=== PATIENT | male | born 1990 | race Caucasian/White ===

== ENCOUNTER 2020-08-18 08:24 | Emergency (ER) | payer MEDICAID, SELFPAY ==
[~2020-08-18] VITALS: Ht 165.1 cm; Wt 86.2 kg
--- NOTE | 2020-08-18 08:24 | NUR ---
ASSISTED OUT OF CAR TO WHEELCHAIR, PLACED IN ROOM #5, TRIAGED. REPORT GIVEN TO KAPIL
[2020-08-18 08:33] VITALS: BP_SYST 113
--- NOTE | 2020-08-18 08:42 | NUR ---
Pt sitting on edge of gurney yelling and moaning in pain. Vital signs stable.
--- NOTE | 2020-08-18 08:42 | NUR ---
BRAD Gilbert at bedside examining patient. Addendum: 08/18/20 at 1158 by SDEDHD BRAD Starr at bedside examining patient.
[2020-08-18] MEDS ORDERED: MORPHINE 4 MG/ML INJ. SYRINGE IVP ONE (08:45)
[2020-08-18] MEDS ORDERED: NACL 0.9% 1,000 ML IV ONE (08:45)
[2020-08-18] MEDS ORDERED: DIPHENHYDRAMINE INJ 50 MG/ML VIAL IVP ONE (08:45)
--- NOTE | 2020-08-18 08:45 | NUR ---
20 gauge IV to the right hand inserted.
[2020-08-18 09:12] LABS: BASOPHILS # (AUTO) 0.1 K/uL (0.0-0.2); BASOPHILS % (AUTO) 0.7 % (0.0-2.0); EOSINOPHILS # (AUTO) 0.1 K/uL (0.0-0.4); EOSINOPHILS % (AUTO) 0.6 % (0.0-4.0); HEMATOCRIT 48.2 % (36-54); HEMOGLOBIN 16.2 g/dL (14.0-18.0); LYMPHOCYTES # (AUTO) 2.3 K/uL (1.0-5.5); LYMPHOCYTES % (AUTO) 16.7 % (20.5-51.5); MEAN CORPUSCULAR HEMOGLOBIN 30 pg (27-31); MEAN CORPUSCULAR HGB CONC 34 % (32-36); MEAN CORPUSCULAR VOLUME 90 fL (79.0-98.0); MONOCYTES # (AUTO) 0.8 K/uL (0.0-1.0); MONOCYTES % (AUTO) 5.6 % (1.7-9.3); NEUTROPHILS # (AUTO) 10.4 K/uL (1.8-7.7); NEUTROPHILS % (AUTO) 76.4 % (40.0-70.0); PLATELET COUNT (AUTO) 252 K/uL (130-430); RED BLOOD CELL COUNT(AUTO) 5.37 MIL/uL (4.2-6.2); RED CELL DISTRIBUTION WIDTH 13.7 % (9.0-15.0); WHITE BLOOD COUNT (AUTO) 13.6 K/uL (4.8-10.8)
[2020-08-18 09:39] LABS: CALCIUM 9.4 mg/dL (8.4-11.0); CREATININE 1.03 mg/dL (0.55-1.30); POTASSIUM 3.8 mmol/L (3.5-5.1)
[2020-08-18 09:45] LABS: TOTAL BILIRUBIN 0.3 mg/dL (0.0-1.0)
[2020-08-18 10:08] LABS: INR 0.9 (0.80-1.20); PROTHROMBIN TIME 9.6 SECS (9.5-12.5)
[2020-08-18 11:11] LABS: BARBITURATE, URINE NEGATIVE (NEG <=200); BENZODIAZEPINE, URINE NEGATIVE (NEG <=150); BILIRUBIN,URINE NEGATIVE (NEGATIVE); CLARITY/URINE CLEAR (CLEAR); COCAINE, URINE NEGATIVE (NEG <=150); COLOR,URINE YELLOW (YELLOW); GLUCOSE,URINE NEGATIVE (NEGATIVE); KETONES,URINE NEGATIVE (NEGATIVE); LEUKOCYTE ESTERASE ,URINE NEGATIVE (NEGATIVE); METHAMPHETAMINES SCREEN,URINE NEGATIVE (NEG <=500); NITRITE, URINE NEGATIVE (NEGATIVE); PH,URINE 5.5 (5.0-8.0); PROTEIN URINE NEGATIVE (NEGATIVE); URINE AMPHETAMINE NEGATIVE (NEG <=500); URINE METHADONE NEGATIVE (NEG <=200); UROBILINOGEN,URINE 0.2 (0.2-1.0)
[2020-08-18 11:12] LABS: BLOOD, URINE TRACE (NEGATIVE); CANNABINOID, URINE POSITIVE (NEG <=50); OPIATE, URINE POSITIVE (NEG <=100); PHENCYCLIDINE SCREEN,URINE NEGATIVE (NEG <=25); UR TRICYCLIC ANTIDEPRESSANTS NEGATIVE (NEG <=300); URINE OXYCODONE SCREEN NEGATIVE (NEG <=100); URINE PROPOXYPHENE SCREEN NEGATIVE (NEG <=300)
[2020-08-18 11:24] LABS: BACTERIA,URINE FEW /HPF (None Seen); WBC,URINE 0-3 /HPF (0-3)
[2020-08-18] MEDS ORDERED: KETOROLAC TROMETHAMINE 30 MG VIAL IVP ONE (11:45)
[2020-08-18] MEDS ORDERED: IOHEXOL 350 mgI/mL, 150 ML INFUS..BTL IV ONE (11:47)
--- NOTE | 2020-08-18 11:54 | NUR ---
pt going for CTA.
[2020-08-18] MEDS ORDERED: LORazepam 2 MG/ML VIAL ONE (12:14)
[2020-08-18] MEDS ORDERED: LORazepam 2 MG/ML VIAL IVP ONE (12:15)
[2020-08-18] MEDS ORDERED: HALOPERIDOL LACTATE 5 MG/ML VIAL ONE (12:19)
--- NOTE | 2020-08-18 12:20 | NUR ---
called over by mechanical maintenance technician, stated that the pt had "passed in CT". Pt was found fighting the staff. Pt ulled put his IV. Pt also bit his tongue and was found bleeding from the mouth. Medicated w/ Haldol and Ativan IM.
[2020-08-18] MEDS ORDERED: HALOPERIDOL LACTATE 5 MG/ML VIAL IM ONE (12:30)
--- NOTE | 2020-08-18 14:30 | NUR ---
pt taken to ct with RN
--- NOTE | 2020-08-18 15:30 | NUR ---
Dr. Chun called and asked for CT head and Covid results
--- NOTE | 2020-08-18 16:15 | NUR ---
Dr. Chun will not admit the pt at this time. CT of the head was negative. Rapoid coivd was negative
--- NOTE | 2020-08-18 16:42 | NUR ---
Note undone in EDM - 08/18/20 at 1648 by BLANKA Patient given written and verbal discharge instructions and verbalizes understanding. ER MD Dunlap discussed with patient the results and treatment provided. Patient in stable condition. ID arm band removed. IV catheter removed intact and dressing applied, no active bleeding. Rx of Tylenol with codeine given. Patient educated on pain management and to follow up with PMD. Pain Scale 3. Opportunity for questions provided and answered. Medication side effect fact sheet provided.
--- NOTE | 2020-08-18 16:50 | NUR ---
Patient given written and verbal discharge instructions and verbalizes understanding. ER MD Dunlap discussed with patient the results and treatment provided. Patient in stable condition. ID arm band removed. IV catheter removed intact and dressing applied, no active bleeding. Rx of Tylenol with codeine given. Patient educated on pain management and to follow up with PMD. Pain Scale 3. Opportunity for questions provided and answered. Medication side effect fact sheet provided.
[2020-08-18 16:51] VITALS: BP_SYST 119
--- NOTE | 2020-08-18 17:23 | NUR ---
pt taken out in wheelchair.
== END 2020-08-18 16:50 | disposition home or self-care (01) ==
LOC: SED 08:24
DX: M54.6 Pain in thoracic spine (principal); R56.9 Unspecified convulsions; J45.909 Unspecified asthma, uncomplicated; F12.90 Cannabis use, unspecified, uncomplicated; Z87.891 Personal history of nicotine dependence; Z20.822 Contact with and (suspected) exposure to COVID-19
CPT/HCPCS: 36415; 70450; 71045; 71275; 76376; 80053; 80307; 81000; 85025; 85379; 85610; 85730; 87081; 87426; 93005; 96361; 96372; 96374; 96375; 99285; G0482; J1200; J1630; J1885; J2060; J2270; J7030; Q9967

== ENCOUNTER 2020-08-19 11:34 | Emergency (ER) | payer MEDICAID, SELFPAY ==
[~2020-08-19] VITALS: Ht 165.1 cm; Wt 83.9 kg
[2020-08-19 11:45] VITALS: BP_SYST 118
[2020-08-19 13:06] VITALS: BP_SYST 118
== END 2020-08-19 13:08 | disposition home or self-care (01) ==
LOC: SED 11:34
DX: M54.6 Pain in thoracic spine (principal); J45.909 Unspecified asthma, uncomplicated
CPT/HCPCS: 72072-TC; 72100-TC; 99284

== ENCOUNTER 2022-06-06 11:18 | Emergency (ER) | payer SELFPAY ==
[~2022-06-06] VITALS: Ht 165.1 cm; Wt 79.4 kg
[2022-06-06 11:27] VITALS: BP_SYST 146
--- NOTE | 2022-06-06 12:23 | NUR ---
COVID AND INFLUENZA COLLECTED AND SENT TO LAB
--- NOTE | 2022-06-06 12:28 | NUR ---
DR JUSTICE IN TRIAGE TO SEE PT.
--- NOTE | 2022-06-06 12:40 | NUR ---
Patient given written and verbal discharge instructions and verbalizes understanding. ER MD discussed with patient the results and treatment provided. Patient in stable condition. ID arm band removed. Opportunity for questions provided and answered.
[2022-06-06 12:41] VITALS: BP_SYST 146
== END 2022-06-06 12:40 | disposition home or self-care (01) ==
LOC: SED 11:18
DX: J06.9 Acute upper respiratory infection, unspecified (principal); R05.9 Cough, unspecified; R09.81 Nasal congestion; J45.909 Unspecified asthma, uncomplicated; F12.90 Cannabis use, unspecified, uncomplicated; Z79.899 Other long term (current) drug therapy; Z20.822 Contact with and (suspected) exposure to COVID-19
CPT/HCPCS: 36415; 99283

== ENCOUNTER 2023-06-08 14:27 | Emergency (ER) | payer MEDICAID ==
[~2023-06-08] VITALS: Ht 165.1 cm; Wt 88.9 kg
[2023-06-08 15:17] VITALS: BP_SYST 165; PULSE 99; RESP 20; TEMP 98.5; O2SAT 97
[2023-06-08 16:47] LABS: BASOPHILS # (AUTO) 0.1 K/uL (0.0-0.2); BASOPHILS % (AUTO) 0.8 % (0.0-2.0); EOSINOPHILS # (AUTO) 0.1 K/uL (0.0-0.4); EOSINOPHILS % (AUTO) 0.8 % (0.0-4.0); HEMATOCRIT 49.4 % (36-54); HEMOGLOBIN 16.6 g/dL (14.0-18.0); LYMPHOCYTES # (AUTO) 2.6 K/uL (1.0-5.5); LYMPHOCYTES % (AUTO) 25.3 % (20.5-51.5); MEAN CORPUSCULAR HEMOGLOBIN 29 pg (27-31); MEAN CORPUSCULAR HGB CONC 34 % (32-36); MEAN CORPUSCULAR VOLUME 88 fL (79.0-98.0); MONOCYTES # (AUTO) 0.8 K/uL (0.0-1.0); MONOCYTES % (AUTO) 7.8 % (1.7-9.3); NEUTROPHILS # (AUTO) 6.7 K/uL (1.8-7.7); NEUTROPHILS % (AUTO) 65.3 % (40.0-70.0); PLATELET COUNT (AUTO) 236 K/uL (130-430); RED BLOOD CELL COUNT(AUTO) 5.64 MIL/uL (4.2-6.2); RED CELL DISTRIBUTION WIDTH 13.5 % (9.0-15.0); WHITE BLOOD COUNT (AUTO) 10.3 K/uL (4.8-10.8)
[2023-06-08 16:59] LABS: ANION GAP 8 (5-15); CALCIUM 9.5 mg/dL (8.4-11.0); CARBON DIOXIDE 30 mmol/L (23-29); CHLORIDE 102 mmol/L (98-107); CREATININE 1.13 mg/dL (0.55-1.30); GFR AFRICAN AMERICAN 97 mL/min (>90); GLUCOSE 98 mg/dL (74-106); SODIUM SERUM 140 mmol/L (136-145); UREA NITROGEN, BLOOD 14 mg/dL (8-21)
[2023-06-08 17:01] LABS: GFR NON AFRICAN-AMERICAN 80 mL/min (>90)
[2023-06-08 17:13] LABS: ALANINE AMINOTRANSFERASE 36 U/L (12-78); ALBUMIN 4.1 g/dL (3.4-4.8); ASPARTATE AMINOTRANSFERASE 22 U/L (10-37); TOTAL BILIRUBIN 0.3 mg/dL (0.0-1.0); TOTAL PROTEIN, SERUM 7.5 g/dL (6.4-8.3)
[2023-06-08 18:09] VITALS: BP_SYST 149; PULSE 95; RESP 18; TEMP 98.1; O2SAT 99
[2023-06-09] MEDS ORDERED: BACITRACIN 1 GM OINT TP ONE (10:01)
== END 2023-06-08 18:09 | disposition home or self-care (01) ==
LOC: SED 14:27
DX: H02.403 Unspecified ptosis of bilateral eyelids (principal); H53.2 Diplopia; J45.909 Unspecified asthma, uncomplicated; Z79.899 Other long term (current) drug therapy
CPT/HCPCS: 36415; 70450-TC; 76376; 80053; 84484; 85025; 99284